=== PATIENT | male | born 1980 | race Caucasian/White ===

== ENCOUNTER → 2021-07-28 15:55 | Outpatient (CLI) | payer OTHER, SELFPAY ==
--- NOTE | ~2021-07-28 | XR_ITS ---
EXAMINATION: XR shoulder RT min 2V DATE: 07/28/2021 16:17 INDICATION: Right shoulder pain post injury 607 months prior. TECHNIQUE: AP internally and externally rotated, AP oblique externally rotated and axillary views of the right shoulder were obtained. COMPARISON: 12/03/2012 FINDINGS: Normal alignment. No fracture. Glenohumeral joint is normal. Minimal acromioclavicular osteoarthriti s. There is however increasing subarticular lucency suggesting cystic change at the lateral head of t he right clavicle. Small bone island at the right humeral head. Soft tissues are unremarkable. Visual ized portions of the lungs are clear. IMPRESSION: Subtle increasing subarticular lucency at the lateral head of the right clavicle suggesting cystic ch del which could be seen in setting of distal clavicular osteolysis. Reviewed, dictated and finalized at location D. ATIONAL ASSISTANT IMPRESSION: Subtle increasing subarticular lucency at the lateral head of the right clavicl e suggesting cystic change which could be seen in setting of distal clavicular osteolysis.
== END ==
PROVIDERS: PCP Physician Assistant; Visit Provider Physician Assistant
DX: M25.511 Pain in right shoulder (principal)
CPT/HCPCS: 73030